=== PATIENT | female | born 1985 | race Caucasian/White ===

== ENCOUNTER 2018-11-19 03:54 | Emergency (ER) | payer SELFPAY ==
[~2018-11-19] VITALS: Ht 160 cm; Wt 77.6 kg
[2018-11-19 04:00] VITALS: Ht 160 cm; Wt 77.6 kg
[2018-11-19 06:55] VITALS: BP 111/57
== END 2018-11-19 06:55 | disposition home or self-care (01) ==
LOC: ED 03:54
DX: N39.0 Urinary tract infection, site not specified (principal)
CPT/HCPCS: 87491; 87591; J0696; Q0162